=== PATIENT | female | born 1955 | race Caucasian/White ===

== ENCOUNTER 2025-06-16 15:02 | Emergency (ER) | payer MEDICARE ==
[~2025-06-16] VITALS: Ht 157.4 cm; Wt 59.0 kg
[2025-06-16] MEDS ORDERED: Albuterol Sulf/Ipratropium 3 ML VIAL NEB ONE (15:20)
[2025-06-16] MEDS ORDERED: ATORVASTATIN CA20 M1 PO (15:50)
[2025-06-16] MEDS ORDERED: TRAZODONE150 MG PO (15:51)
[2025-06-16] MEDS ORDERED: ALLEGRA-D 24 H1 EACH PO (15:51)
[2025-06-16] MEDS ORDERED: LEVOTHYROXINE50 MCG PO (15:51)
[2025-06-16] MEDS ORDERED: Water, Sterile 10 ML VIAL ONE (15:59)
[2025-06-16 16:08] LABS: BASO # 0.0 10*3/uL (0.0-0.1); BASO % 0.7 % (0.0-1.0); EOS # 0.2 10*3/uL (0.0-0.4); EOS % 4.7 % (1.0-4.0); MEAN CELL VOLUME 83.9 fl (81.0-99.0); MEAN CORPUSCULAR HGB 28.5 pg (27.0-31.0); MEAN PLATELET VOLUME 9.3 fl (9.6-12.3); MONO # 0.4 10*3/uL (0.1-1.0); MONO % 9.3 % (3.0-9.0); NEUT # 2.0 10*3/uL (2.3-7.9); NEUT % 44.1 % (47.0-73.0); NUCLEATED RED BLOOD CELL 0.0 % (0.0-0.0); NUCLEATED RED BLOOD CELL 0.0 10*3/uL (0.0-0.0); PLATELET COUNT AUTOMATED 142 10*3/uL (130-400); RED CELL DISTRI WIDTH 13.0 % (0-14.5)
[2025-06-16 16:24] LABS: BUN 11 mg/dl (9-23); CPK 51 U/L (34-171)
[2025-06-16] MEDS ORDERED: ALBUTEROL2.5 MG/0.5 INH (16:53)
[2025-06-16] MEDS ORDERED: VISTARIL25 MG PO (16:53)
[2025-06-16] MEDS ORDERED: PREDNISONE50 MG PO (16:53)
[2025-06-17] MEDS ORDERED: VENT7GM INH (10:56)
== END 2025-06-16 17:13 | disposition home or self-care (01) ==
LOC: ED 15:02
PROVIDERS: Emergency Medicine
DX: J44.1 Chronic obstructive pulmonary disease with (acute) exacerbation (principal); F41.9 Anxiety disorder, unspecified; J40 Bronchitis, not specified as acute or chronic; E78.5 Hyperlipidemia, unspecified; Z20.822 Contact with and (suspected) exposure to COVID-19